=== PATIENT | female | born 1940 | race African-American/Black ===

== ENCOUNTER 2019-03-29 00:54 | Inpatient (IN) | payer OTHER ==
[~2019-03-29] VITALS: Ht 154.9 cm; Wt 59.0 kg
[2019-03-29 00:55] VITALS: BP 81/53
[2019-03-29 01:27] LABS: URINE BILIRUBIN NEGATIVE (Negative); URINE BLOOD 3+ (Negative); URINE CLARITY CLOUDY; URINE COLOR YELLOW; URINE GLUCOSE-RANDOM* 3+ (Negative); URINE KETONES 1+ (Negative); URINE NITRITE-REFLEX NEGATIVE (Negative); URINE PROTEIN (DIPSTICK) NEGATIVE (Negative); URINE SPECIFIC GRAVITY 1.025 (1.005-1.035); URINE UROBILINOGEN 0.2 E.U./dl (0.2-1.0)
[2019-03-29 01:29] LABS: ABSOLUTE NEUTROPHILS 6.9 thou/uL (1.4-8.2); BASOPHILS 0.2 % (0.0-2.0); HEMATOCRIT 44.5 % (37.0-47.0); HEMOGLOBIN 14.6 gm/dL (12.0-15.0); LYMPHOCYTES 8.2 % (24.0-44.0); MCH 27.7 pg (26.0-34.0); MCHC 32.8 g/dL (28.0-37.0); MCV 84.4 fL (80.0-100.0); MONOCYTES 7.4 % (1.0-8.0); PLATELET COUNT 184 thou/uL (150-400); POLYS 84.2 % (36.0-66.0); RBC 5.27 mil/uL (4.20-5.00); RDW 15.6 % (10.5-14.5); WBC 8.2 thou/uL (4.0-11.0)
[2019-03-29 01:31] LABS: URINE LEUKOCYTES-REFLEX 2+ (Negative)
[2019-03-29 01:37] LABS: CALCIUM 9.5 mg/dL (8.5-10.1); CREATININE 0.8 mg/dL (0.6-1.0); POTASSIUM 4.7 mmol/L (3.5-5.1)
[2019-03-29 01:43] LABS: ALBUMIN 3.4 g/dL (3.4-5.0); DIRECT BILIRUBIN 0.1 mg/dL (<0.1-0.3); TOTAL BILIRUBIN 0.4 mg/dL (<0.1-1.0); TOTAL PROTEIN 7.5 g/dL (6.4-8.2)
[2019-03-29] MEDS ORDERED: TYLENOL WITH CO1 TA1 PO ×2 (01:43→01:44)
[2019-03-29] MEDS ORDERED: TYLENOL PO (01:43)
[2019-03-29] MEDS ORDERED: LIPITOR 20 MG T20 M1 PO (01:44)
[2019-03-29] MEDS ORDERED: BACLOFEN 10MG T10 MG PO (01:45)
[2019-03-29] MEDS ORDERED: DAILY VITAMIN1 EAC4 PO (01:45)
[2019-03-29] MEDS ORDERED: MILK OF MA400 MG/5 M PO (01:46)
[2019-03-29] MEDS ORDERED: SENNA PLUS TAB1 EACH PO (01:46)
[2019-03-29] MEDS ORDERED: ZOFRAN4 MG PO (01:47)
[2019-03-29] MEDS ORDERED: JARDIANCE10 MG PO (01:47)
[2019-03-29] MEDS ORDERED: EQUETRO100 MG PO (01:49)
[2019-03-29] MEDS ORDERED: EQUETRO300 MG PO (01:49)
[2019-03-29] MEDS ORDERED: OXYBUTYNIN 5 MG5 M2 PO (01:50)
[2019-03-29 01:52] LABS: BACTERIA-REFLEX >30 Many /HPF (None Seen); CASTS None Seen /LPF (None Seen); CRYSTALS None Seen /LPF (None Seen); MUCUS 0-3 Light strn/LPF (None Seen); SQUAMOUS 0-3 Few /LPF (0-3); URINE RBC >20 Many /HPF (0-2); URINE WBC-REFLEX >25 Many /HPF (0-5); WBC CLUMPS Moderate (None Seen); YEAST-REFLEX Present (None Seen)
--- NOTE | 2019-03-29 02:14 | NUR ---
NOTIFIED STAFF AT [facility] ABOUT PT WILL BE ADMITTED.
--- NOTE | 2019-03-29 02:44 | NUR ---
Report was given to KEITH Zimmer.
[2019-03-29 02:53] VITALS: BP 134/80
[2019-03-29 03:11] VITALS: BP 110/68
--- NOTE | 2019-03-29 05:51 | NUR ---
PT CAME TO 4S @0300. ADMISSION ASSSESSMENT COMPLETED. PT IS A&O TO PERSON AND PLACE BUT FORGETFUL. TOTAL CARE, Q2 TURN. R. HAND WEAK, R. LEG UNABLE TO MOVE. INCONTINENT OF B/B. SKIN IS INTACT, PINK AREAS TO BUTTOCK & ESCORIATED BL GROIN. VSS. RA. APPEARS TO BE NO DISTRESS. BLADDER DISCENDED, SCANNED REFLECTED >999ML, ORDERS RC TO PLACE MATIAS. 16 FR MATIAS TO DD PLACED W/ NO DIFFICULTY. IMMEDIATE OUTPUT OF >1400 NOTED. FALL PRECAUTIONS IN PLACE. WILL CONTINUE POC.
[2019-03-29 07:56] VITALS: BP 112/50
--- NOTE | 2019-03-29 15:45 | NUR ---
Assumed care of pt at 0700. Home meds restarted. Fregoso catheter in place. Q2h turn. Redness noten on buttocks area. Barrier cream applied. IVF infusing. GI consulted. GI doctor ordered obd ultrasound. Radiology called and states ultrasound can only be done on Tuesday (mar 31). Accu check achs. Call light within reach. Will continue to monitor.
[2019-03-29 17:20] VITALS: BP 116/60
[2019-03-29 19:31] VITALS: BP 91/53
--- NOTE | 2019-03-30 02:45 | NUR ---
ASSUMED PT CARE ON 03/29/19 APPROX 191. PT IS ALERT TO SELF. PT WAS EDUCATED ON HOW TO USE THE CALL LIGHT. PT TOOK THE SCHEDULED MEDICATION. PT IS INCONTINENT. PT WAS REPOSITIONED Q2 HRS. PT HAS A SMALL BM THAT WAS A LIQUID AND LIGHT BROWN. PT HAS WEAKNESS. PT FOLLOWS DIRECTIONS. WILL CONTINUE TO MONITOR.
[2019-03-30 04:30] VITALS: BP 101/52
[2019-03-30 04:40] LABS: HEMATOCRIT 35.7 % (37.0-47.0); MCH 28.2 pg (26.0-34.0); MCHC 33.4 g/dL (28.0-37.0); MCV 84.3 fL (80.0-100.0); RBC 4.24 mil/uL (4.20-5.00); RDW 15.4 % (10.5-14.5); WBC 7.4 thou/uL (4.0-11.0)
[2019-03-30 04:48] LABS: HEMOGLOBIN 11.9 gm/dL (12.0-15.0)
[2019-03-30 04:59] LABS: ALBUMIN 2.7 g/dL (3.4-5.0); ANION GAP 11 mmol/L (7-16); BUN 16 mg/dL (7-18); CALCIUM 8.7 mg/dL (8.5-10.1); CHLORIDE 104 mmol/L (98-107); CO2 24 mmol/L (21-32); CREATININE 0.7 mg/dL (0.6-1.0); DIRECT BILIRUBIN < 0.1 mg/dL (<0.1-0.3); GLUCOSE 146 mg/dL (74-106); POTASSIUM 4.4 mmol/L (3.5-5.1); SGOT 36 U/L (15-37); SGPT 57 U/L (30-65); SODIUM 139 mmol/L (136-145); TOTAL BILIRUBIN 0.3 mg/dL (<0.1-1.0); TOTAL PROTEIN 6.2 g/dL (6.4-8.2)
[2019-03-30 09:46] VITALS: BP 101/57
--- NOTE | 2019-03-30 11:08 | NUR ---
Assumed care of pt at 0700. Denies pain. Q2h turn. Fregoso catheter in place. IVF infusing. Pt worked with physical therapy today. Fall precautions in place. Will continue to monitor.
[2019-03-30 16:29] VITALS: BP 105/58
[2019-03-30 23:10] LABS: HAV IgM AB (ANTI-HAV IgM) Negative (Negative); HEP B SURFACE Ab(ANTI-HBS Non Reactive (()); HEPATITIS B SURFACE AG Negative (Negative); HEPATITIS C VIRUS AB 0.2 (0.0-0.9)
--- NOTE | 2019-03-31 03:32 | NUR ---
ASSUMED CARE AT 1900. PT COMPLAINING OF BOTTOM HURTING. Q2 TURNS AND BARRIER CREAM PROVIDED, NO RELIEF. PT IS SEVERELY IMPACTED, HALLIE DISIMPACTED PT, PAIN MEDS AND STOOL SOFTENER GIVEN. CATHETER PATENT. ANTIBIOTIC GIVEN. PT NOW SLEEPING.
[2019-03-31 06:28] VITALS: BP 128/73
[2019-03-31 08:30] VITALS: BP 102/61
--- NOTE | 2019-03-31 10:11 | NUR ---
Resumed care at 0700. PT was sitting in bed complaining of 10/10 pain on her buttocks. Nurse repositioned PT to her right side using a wedge pillow and 2 ast. A pillow was placed between PT's knees. Nurse applied barrier cream to PT's buttocks after pericare was performed. PT expressed relief with her pain and rated it a 9/10 after interventions were performed. Nurse set up PT so she could wash her face and brush her teeth. Fregoso appeared intact and draining well. Morning medications were given. PT appeared to tolerate those well. Call light is within reach. Nurse will continue to monitor.
[2019-03-31 16:00] VITALS: BP 110/72
[2019-03-31 20:00] VITALS: BP 129/69
--- NOTE | 2019-04-01 04:40 | NUR ---
PATIENT ALERT AND ORIENTED X4. C/O PAIN, MED GIVEN. ACCUCHECK 280, NO COVERAGE ORDERED. MATIAS PATENT YELLOW URINE WITH SEDIMENT. HAS PRONOUNCED R SIDED WEAKNESS. IV PATENT IN RAC. SLEPT MOST OF NIGHT.
--- NOTE | 2019-04-01 15:46 | NUR ---
ASSUMED PT CARE AT 0700. PT IS AOX4, TURNED Q 2HRS, VSS, IV PATENT IN RIGHT AC. PT HAD LARGE BM DURING THIS SHIFT. MATIAS CATH HAS YELLOW URINE WITH SEDIMENT. PT IS WEAK ON RIGHT SIDE, WITCH LUCINDA TUCKS PADS APPLY TO BUTTOCKS FOR PAIN RELIEF. PT REPORTS BUTTOCKS IS SORE 6/10, BUT REFUSED PAIN ANALGESIC AT THIS TIME. TOLERATING DIET WELL, CALL LIGHT, AND PERSONAL ITEMS ARE IN REACH. WILL CONTINUE TO MONITOR.
[2019-04-01 16:22] VITALS: BP 135/69
[2019-04-01 19:20] VITALS: BP 129/67
[2019-04-02 04:39] VITALS: BP 119/56
[2019-04-02 06:31] LABS: HEMATOCRIT 36.5 % (37.0-47.0); MCH 27.6 pg (26.0-34.0); MCHC 32.8 g/dL (28.0-37.0); MCV 84.3 fL (80.0-100.0); PLATELET COUNT 186 thou/uL (150-400); RBC 4.34 mil/uL (4.20-5.00); RDW 15.1 % (10.5-14.5)
[2019-04-02 06:52] LABS: ALBUMIN 2.6 g/dL (3.4-5.0); CALCIUM 8.5 mg/dL (8.5-10.1); CREATININE 0.5 mg/dL (0.6-1.0); POTASSIUM 3.7 mmol/L (3.5-5.1); TOTAL BILIRUBIN 0.2 mg/dL (<0.1-1.0); TOTAL PROTEIN 6.2 g/dL (6.4-8.2)
--- NOTE | 2019-04-02 08:06 | NUR ---
PT LYING IN BED. REMAINS INCONTINENT OF STOOL. TUCKS AND SUPPOSITORY PROVDIDING PAIN RELIEF. RESTING COMFORTABLY. NO NEEDS VOICED. CALL LIGHT WITHIN REACH. WILL CONTINUE TO PROVIDE FREQUENT OBSERVATION.
[2019-04-02 08:44] LABS: ABSOLUTE NEUTROPHILS 3.2 thou/uL (1.4-8.2); PLATELET ESTIMATE NORMAL
[2019-04-02 08:58] VITALS: BP 137/68
[2019-04-02] MEDS ORDERED: CEFTRIAXON1 GM/50 ML IV (12:04)
[2019-04-02] MEDS ORDERED: EQUETRO100 MG PO (12:09)
--- NOTE | 2019-04-02 16:08 | NUR ---
PT DISCHARGING BACK TO [facility] FAXED DC ORDERS/SUMMARY TO FACILITY SPOKE WITH MARTIR IN ADM SHE RECEIVED DC ORDERS AND ARRANGED TRANSPORT BY [facility] FOR 1700. LEFT MSG WITH PT'S SON (LEXI) AND DTR IN LAW (ARRON) OF DC AND TIME OF TRANSPORT. UNIT NOTIFIED AND CHART COPY PER US. RN TO CALL REPORT TO [phone].
--- NOTE | 2019-04-02 17:31 | NUR ---
TRANSPORTATION HERE TO TRANSPORT PATIENT. NO PAIN OR RESP DISTRESS AT DC. ALL BELONGINGS PACKED AND SENT WITH PATIENT. IV ACSESS DCD.
[2019-04-03 09:08] LABS: MITOCHONDRIAL ANTIBODY <20.0 Units (0.0-20.0)
--- NOTE | 2019-04-04 09:40 | HC ---
[facility] [place] [address] CONSULTATION Name: LINDA NIELSON Lela Room #: 444-P [facility] ..#: [id number] Admission: 03/29/19 Attend Phys: Romero Smiley MD Discharge: 04/02/19 Date of : 38 Report #: [id number] THIS REPORT FOR: //name// CC: Romero Smiley MD DATE OF SERVICE: 03/29/2019 HISTORY OF PRESENT ILLNESS: The patient is a 78-year-old female apparently with new onset confusion at her halfway recently. She was diagnosed with urinary tract infection on admission and started on antibiotics. She has improved today. Her mental status has improved. Reason for GI consultation is elevated liver function tests. The patient denies any history of liver disease. No history of alcohol use. She is on the statin medications as well as other medications. This has now been held. She denies any abdominal pain. She reports her bowel movements have been normal other than constipation. Denies any blood in her stools. She believes she had a colonoscopy within the last 5 years that was negative. The patient was hypotensive on admission. This is now improved. She currently denies any fevers or chills. Again, no abdominal pain. No chest pain or shortness of breath. She is eating a regular diet currently. PAST MEDICAL HISTORY: History of multiple sclerosis, previous hemorrhoidectomy, history of diabetes, hypertension, peripheral vascular disease, constipation, hyperlipidemia. MEDICATIONS ON ADMISSION: Tylenol with Codeine p.r.n., Lipitor, multivitamin, baclofen, senna p.r.n., milk of magnesia p.r.n., Zofran p.r.n., carbamazepine, oxybutynin. ALLERGIES: No known drug allergies. REVIEW OF SYSTEMS: As per HPI. FAMILY HISTORY: Negative for colon cancer. SOCIAL HISTORY: She denies any tobacco or alcohol use. PHYSICAL EXAMINATION: VITAL SIGNS: Temperature is 98.4, pulse 61, blood pressure 112/50, respiratory rate is 18. GENERAL: She is alert and oriented x 3, in no acute distress. HEENT: Sclerae nonicteric. Oropharynx clear. NECK: Supple, without lymphadenopathy. CARDIOVASCULAR: Regular rate and rhythm. CHEST: Clear to auscultation bilaterally. ABDOMEN: Soft, nontender, nondistended, normoactive bowel sounds. [facility] [address] [place] [address] CONSULTATION Name: LINDA NIELSON Lela Room #: 444-P [facility].#: [id number] Admission: 03/29/19 Attend Phys: Romero Smiley MD Discharge: 04/02/19 Date of : 38 Report #: [id number] EXTREMITIES: No cyanosis, clubbing or edema. LABORATORY DATA: Sodium 144, potassium 4.7, chloride 104, bicarbonate 26, BUN 18, creatinine 0.8, glucose 158. AST 55, total bilirubin 0.4, alkaline phosphatase 261, ALT is 101, albumin 3.4. Lactic acid level 2.0. WBC is 8.2, hemoglobin 14.6, platelet count is 184. UA shows wbc's greater than 25, bacteria greater than 30. No other liver function tests to compare. ASSESSMENT AND PLAN: Elevated liver function tests, etiology is unclear. The patient had been on statin. Agree with holding this at this time. We will continue to monitor her liver function tests. We will proceed with an ultrasound of the abdomen tomorrow. The patient denies any abdominal pain. There is no history of alcohol. She was hypotensive on admission, which could be playing a role. We will proceed with further liver lab workup as well at this time. Thank you for allowing me to participate in her care. <ELECTRONICALLY SIGNED> By: Amos Padgett MD 04/04/19 0940 1252 1319 Amos Padgett MD /nt
== END 2019-04-02 17:45 | DRG 871 ==
LOC: ER 00:54 → EROBS 02:14 → 4S 02:14
PROVIDERS: Emergency Medicine; Internal Medicine; Specialist; ADMIT Internal Medicine
DX: A41.9 Sepsis, unspecified organism (principal); G93.41 Metabolic encephalopathy; E87.2 Acidosis; N12 Tubulo-interstitial nephritis, not specified as acute or chronic; G35 Multiple sclerosis; I95.9 Hypotension, unspecified; K59.00 Constipation, unspecified; I10 Essential (primary) hypertension; E11.51 Type 2 diabetes mellitus with diabetic peripheral angiopathy without gangrene; E78.5 Hyperlipidemia, unspecified; G50.0 Trigeminal neuralgia; J31.0 Chronic rhinitis; E86.0 Dehydration; Z79.2 Long term (current) use of antibiotics; Z79.899 Other long term (current) drug therapy; Z79.891 Long term (current) use of opiate analgesic; Z87.891 Personal history of nicotine dependence
CPT/HCPCS: 10195

== ENCOUNTER 2019-07-12 12:22 | Inpatient (IN) | payer OTHER ==
[~2019-07-12] VITALS: Ht 152.4 cm; Wt 67.1 kg
--- NOTE | ~2019-07-12 | EKG ---
[facility] [address] [place] [address] ELECTROCARDIOGRAM REPORT Name: LINDA NIELSON Room #: [facility]..#: [id number] Admission: Attend Phys: Discharge: Date of : 38 Report #: [id number] THIS REPORT FOR: cc: Romero Smiley MD, Ramilo MD Epiphany, Epiphany MD ~ THIS REPORT FOR: //name// [facility] ED Test Date: 2019-07-12 Test Time: 13:05:47 Pat Name: LINDA NIELSON Department: Room: Gender: F [employer] Radar Operator: JOHNATHAN : 1940 Requested By: Barry Lomax Order Number: [id number] MD: Measurements Intervals [place] Rate: 48 P: 20 WA: 253 QRS: -10 QRSD: 136 T: 61 QT: 468 QTc: 419 Interpretive Statements Sinus bradycardia Prolonged [place] interval Left bundle branch block No previous ECG available for comparison [email or web address] By: 1305 1305 Joe Diaz MD /EPI
[~2019-07-12 12:22] MED LIST: BACLOFEN 10MG T10 MG PO; CEFTRIAXON1 GM/50 ML IV; DAILY VITAMIN1 EAC4 PO; EQUETRO100 MG PO; EQUETRO300 MG PO; JARDIANCE10 MG PO; LIPITOR 20 MG T20 M1 PO; MILK OF MA400 MG/5 M PO; OXYBUTYNIN 5 MG5 M2 PO; SENNA PLUS TAB1 EACH PO; TYLENOL PO; TYLENOL WITH CO1 TA1 PO; ZOFRAN4 MG PO
[2019-07-12 12:24] VITALS: BP 95/52
[2019-07-12] MEDS ORDERED: TYLENOL325 MG PO (12:35)
[2019-07-12] MEDS ORDERED: EQUETRO100 MG PO (12:37)
[2019-07-12 13:51] LABS: ABSOLUTE NEUTROPHILS 3.7 thou/uL (1.4-8.2); BASOPHILS 0.4 % (0.0-2.0); EOSINOPHILS 1.2 % (0.0-3.0); HEMATOCRIT 40.8 % (37.0-47.0); HEMOGLOBIN 13.2 gm/dL (12.0-15.0); LYMPHOCYTES 30.8 % (24.0-44.0); MCH 27.4 pg (26.0-34.0); MCHC 32.3 g/dL (28.0-37.0); MCV 84.7 fL (80.0-100.0); PLATELET COUNT 154 thou/uL (150-400); POLYS 62.6 % (36.0-66.0); RBC 4.82 mil/uL (4.20-5.00); RDW 16.1 % (10.5-14.5)
[2019-07-12 14:34] LABS: ANION GAP 5 mmol/L (7-16); BUN 16 mg/dL (7-18); CALCIUM 7.9 mg/dL (8.5-10.1); CHLORIDE 112 mmol/L (98-107); CO2 30 mmol/L (21-32); CREATININE 0.6 mg/dL (0.6-1.0); GLUCOSE 106 mg/dL (74-106); POTASSIUM 3.8 mmol/L (3.5-5.1); SODIUM 147 mmol/L (136-145)
[2019-07-12 14:43] LABS: ALBUMIN 2.4 g/dL (3.4-5.0); MAGNESIUM 1.7 mg/dL (1.8-2.4); SGOT 35 U/L (15-37); SGPT 45 U/L (30-65); TOTAL BILIRUBIN 0.2 mg/dL (<0.1-1.0); TOTAL PROTEIN 5.1 g/dL (6.4-8.2); TROPONIN-I <0.06 ng/mL (<0.06)
[2019-07-12 15:00] LABS: URINE BILIRUBIN NEGATIVE (Negative); URINE BLOOD 1+ (Negative); URINE CLARITY CLOUDY; URINE COLOR YELLOW; URINE GLUCOSE-RANDOM* 3+ (Negative); URINE KETONES NEGATIVE (Negative); URINE LEUKOCYTES-REFLEX 2+ (Negative); URINE NITRITE-REFLEX POSITIVE (Negative); URINE PROTEIN (DIPSTICK) NEGATIVE (Negative); URINE SPECIFIC GRAVITY 1.015 (1.005-1.035); URINE UROBILINOGEN 0.2 E.U./dl (0.2-1.0)
[2019-07-12 15:08] LABS: CASTS None Seen /LPF (None Seen); CRYSTALS None Seen /LPF (None Seen); SQUAMOUS 0-3 Few /LPF (0-3); YEAST-REFLEX Present (None Seen)
[2019-07-12 15:09] LABS: BACTERIA-REFLEX >30 Many /HPF (None Seen); URINE RBC 0-2 Rare /HPF (0-2)
--- NOTE | 2019-07-12 16:45 | EKG ---
[facility] [place] [address] ELECTROCARDIOGRAM REPORT Name: LINDA NIELSON Room #: REG [facility]#: [id number] Admission: 07/12/19 Attend Phys: Discharge: Date of : 38 Report #: [id number] THIS REPORT FOR: cc: Romero Smiley MD, Ramilo MD Couchonnal,Eladio New MD ~ THIS REPORT FOR: //name// [facility] ED Test Date: 2019-07-12 Test Time: 13:05:47 Pat Name: LINDA NIELSON Department: Room: Gender: Rn Endoscopy: [facility] : 1940 Requested By: Barry Lomax Order Number: [id number] MD: Eladio Jackson Measurements Intervals [place] Rate: 48 P: 20 CA: 253 QRS: -10 QRSD: 136 T: 61 QT: 468 QTc: 419 Interpretive Statements Sinus bradycardia Prolonged CA interval Left bundle branch block No previous ECG available for comparison Electronically Signed On 07-12-2019 16:44:12 CDT by Eladio Jackson [email or web address] <ELECTRONICALLY SIGNED> By: Eladio Jackson MD 07/12/19 1644 04 04 Eladio Jackson MD /RIZWANA
[2019-07-12 16:56] VITALS: BP 110/53
--- NOTE | 2019-07-12 17:09 | NUR ---
CALLED AND SPOKE TO DR. REEVES REGARDING DROP IN BP - RECEIVED ORDER FOR 250 OF NS BOLUS. WILL PUT IN ORDER AND ADMIN AT THIS TIME
[2019-07-12 17:26] VITALS: BP 102/56; BP 82/41
[2019-07-12 18:30] VITALS: BP 100/69
--- NOTE | 2019-07-12 18:54 | NUR ---
ASSUMED CARE OF PATIENT AT 1800. PATIENT IS A&O X 4. NIECE AT THE BEDSIDE. PATIENT DENIES ANY CHEST PAIN OR DIZZINESS. PATIENT IS SR ON TELE. PATIENT HAD FACILITY BRIEF REMOVED AND EXTERNAL FEMALE CATH PLACED, PATIENT IS INCONTINENT TO URINE. PATIENT IS RESTING COMFORTABLY. DINNER ORDERED AND PATIENT EATING DURING ADMISSION ASSESSMENT. PATIENT TO CONTINUE WITH POC.
[2019-07-12 19:19] VITALS: BP 101/65
--- NOTE | 2019-07-13 03:01 | NUR ---
ASSUMED CARE OF PT AT 2300HRS. PT IS AOX4. FALL PRECAUTION IN PLACE. AGREE WITH CORNELIUS NURSE'S ASSESSMENT. FEMALE EXTERNAL CATH IN PLACE. PT IS RESTING COMFORTABLY. VSS AND NO S/S OF ACUTE DISTRESS. WILL CONTINUE TO MONITOR.
[2019-07-13 03:50] VITALS: BP 114/68
[2019-07-13 07:20] VITALS: BP 121/73
[2019-07-13 11:00] VITALS: BP 115/58
[2019-07-13 15:00] VITALS: BP 124/76
--- NOTE | 2019-07-13 16:20 | NUR ---
Case opened to follow for dc planning. Pt is a ltc resident from [facility]. They are holding her bed and can accept her when medically cleared for readmission. She is normally up to a w/c with assist of one. The pt is being treated for UTI/Sepsis. The pt's son and dtr in law is her primary contacts. Dc conservation planner to fax update to the skilled nursing. Should she be ready to return over the weekend, staff will need to call their oncall liason to arrange [phone] and dc orders faxed to [phone].
--- NOTE | 2019-07-13 16:25 | NUR ---
PT ALERT AND ORIENTED TIMES FOUR. VSS, IVF INFUSING PER ORDER. PT DENIES PAIN AT THIS TIME. PT TOLERATES MEDS AND MEALS. PT SLOWLY PROGRESSING TOWRADS POC GOALS. PT FAMILY AT BEDSIDE THIS AFTERNOON.
--- NOTE | 2019-07-13 17:09 | NUR ---
FAXED CLINICAL UPDATE TO [facility] LEFT MSG WITH MARTIR IN ADM. DP TO FOLLOW.
[2019-07-13 20:45] VITALS: BP 141/92
--- NOTE | 2019-07-14 03:04 | NUR ---
pt resting quietly in room, prn tylenol for c/o of arm pain, turning and repositioning as needed, vss, will con't to monitor per ppoc.
[2019-07-14 04:44] LABS: HEMATOCRIT 38.6 % (37.0-47.0); HEMOGLOBIN 12.5 gm/dL (12.0-15.0); MCH 27.7 pg (26.0-34.0); MCHC 32.4 g/dL (28.0-37.0); MCV 85.4 fL (80.0-100.0); RBC 4.52 mil/uL (4.20-5.00); WBC 4.9 thou/uL (4.0-11.0)
[2019-07-14 04:45] VITALS: BP 126/76
[2019-07-14 04:51] LABS: CREATININE 0.6 mg/dL (0.6-1.0); POTASSIUM 4.8 mmol/L (3.5-5.1)
[2019-07-14 07:30] VITALS: BP 120/76
[2019-07-14 15:15] VITALS: BP 112/72
--- NOTE | 2019-07-14 16:18 | NUR ---
ASSESSMENT CHARTED. PT ALERT AND ORIENTED. PLEASANT WITH CARES. VSS. SEEN BY DR. REEVES. NO NEW ORDERS. WILL CONTINUE TO MONITOR.
[2019-07-14 21:29] VITALS: BP 131/73
[2019-07-15 04:45] VITALS: BP 125/62; BP 133/68
--- NOTE | 2019-07-15 06:22 | NUR ---
ASSUME CARE 1900. PT A/O X 4. VITALS STABLE. TEMP STARTED OFF LOW AT 94.6 BUT WENT UP TO 97.4 BY THE ENSD OF THE SHIFT. PT SR/SB ON MONITOR. NO DISTRESS NOTED. ADEQUATE REST NOTED. ASSESSMENT CHARTED. PROGRESSING MODERATELY WITH POC. PLAN IS TO CONTINUE WITH ABX. WILL CONTINUE TO FOLLOW WITH POC
[2019-07-15 08:00] VITALS: BP 126/75
[2019-07-15 12:34] VITALS: BP 105/64
--- NOTE | 2019-07-15 15:40 | NUR ---
PT ALERT AND ORIENTED. VSS. MEDS GIVEN ORDERED. NO CONCERNS AT THIS TIME. PROGRESSING WELL TOWARDS DISCHARGE GOAL. WILL CONTINUE TO MONITOR.
[2019-07-15 16:00] VITALS: BP 99/64
[2019-07-15 19:43] VITALS: BP 135/77
[2019-07-16 03:48] VITALS: BP 132/72
[2019-07-16 04:41] LABS: HEMOGLOBIN 12.3 gm/dL (12.0-15.0); MCH 27.4 pg (26.0-34.0); MCHC 32.4 g/dL (28.0-37.0); MCV 84.6 fL (80.0-100.0); RBC 4.49 mil/uL (4.20-5.00); RDW 16.1 % (10.5-14.5)
[2019-07-16 04:53] LABS: CALCIUM 8.8 mg/dL (8.5-10.1); CREATININE 0.6 mg/dL (0.6-1.0); POTASSIUM 4.1 mmol/L (3.5-5.1)
--- NOTE | 2019-07-16 05:58 | NUR ---
ASSUMED PT CARE AROUND 1900. PT RESTING IN BED. PT REPOSITIONED AND HAD NO C/O PAIN, SOA, N/V/D. PT VITALS STABLE AND ASSESSMENT CHARTED. PT SLEPT THRU NIGHT WITH MINIMAL INTERRUPTIONS. WILL CONTINUE TO MONITOR PT PER PLAN OF CARE.
[2019-07-16 07:00] VITALS: BP 110/61
--- NOTE | 2019-07-16 09:47 | NUR ---
Nutrition: Pt seen d/t low Velasquez score 13 (moderate risk). Admit from facility w/ UTI, sepsis, hypotension. Hx MS, generalized weakness, DM, PVD. Malnutrition indicated in EMR - alb 2.4. Current intake is 70-100% past 3 days. Reports fair appetite. No wasting observed. Weighed 130# on 03/29/19, most recent wt is 147.9#. Unsure of scale accuracy. Wt of 137# on 07/11 is likely more accurate. Reports UBW of 130#. [facility] facility was obtaining wt 1x per week due to a ~7# wt loss which occurred approx. 2 months ago down to 123#, but pt has since regained and wt has been stable past 1 month. Will defer malnutrition diagnosis at this time. BG 85-275. Meds include SSI, multivitamin w/ minerals, IV Abx. Pt aware of ordering preferences from alternate menu. Consider low nutritional risk at this time.
[2019-07-16 11:35] VITALS: BP 90/60
--- NOTE | 2019-07-16 11:38 | NUR ---
ANÍBAL reviewed chart and spoke with nursing. ANÍBAL contacted attending physician to see if pt is ready for discharge back to [facility] today. Discharge may be later today. Awaiting physician to evaluate pt today. emergency planner to fax updates to [facility] and notify of possible discharge. Chart copy requested. ANÍBAL attempted to leave message for pt's son, Osmar. Voice mailbox is full. ANÍBAL spoke with pt's dtr-in-law, Krista, to provide update and notify of anticipated discharge. Krista is aware and agreeable with discharge plan. Pt's son is unable to answer his phone during the day. Krista ([phone]) will need to be notified when disharge plan is in place. ANÍBAL is following to assist as needed with discharge planning.
--- NOTE | 2019-07-16 13:17 | NUR ---
FAXED CLINICAL UPDATE TO [facility] RECEIVED CONFIRMATION AND SPOKE WITH CHELY IN ADM THAT PT POSS DC TODAY BACK TO THEIR FACILITY WTG ON DR REEVES TO DECIDE. DP TO FOLLOW.
[2019-07-16] MEDS ORDERED: CEFUROXIME500 MG PO (14:26)
[2019-07-16 15:15] VITALS: BP 99/57
--- NOTE | 2019-07-16 16:31 | NUR ---
PT DISCHARGING TODAY TO [facility] SPOKE WITH CHELY IN ADM SHE IS COVERING FOR MARTIR SHE RECEIVED DC ORDERS/SUMMARY AND CARONAVIRUS SCREENING SHEET AND ARRANGED TRANSPORT BY [facility] FOR [id number] TODAY. NOTIFIED PT'S FAMILY (PAULETTE) OF DC AND TIME OF TRANSPORT. UNIT NOTIFIED AND CHART COPY PER US RN TO CALL REPORT TO [phone].
--- NOTE | 2019-07-16 16:56 | NUR ---
ASSESSMENT DOCUMENTED, DENIES ANY DISCOMFORT. VSS AND AFEBRILE, SB, 1AVB AND DEVIN AT TIMES. PATIENT DISCHARGED BACK TO FACILITY, AND COPY OF THE CHART SENT WITH PATIENT. CALLED X2 TO GIVE REPORT AND NO ONE IS ANSWERING THE PHONE.
== END 2019-07-16 17:00 | DRG 871 ==
LOC: ER 12:22 → EROBS 17:20 → 2N 17:20
PROVIDERS: Emergency Medicine; Internal Medicine; ADMIT Internal Medicine
DX: A41.9 Sepsis, unspecified organism (principal); E43 Unspecified severe protein-calorie malnutrition; N39.0 Urinary tract infection, site not specified; G35 Multiple sclerosis; I10 Essential (primary) hypertension; E11.51 Type 2 diabetes mellitus with diabetic peripheral angiopathy without gangrene; G50.0 Trigeminal neuralgia; E78.5 Hyperlipidemia, unspecified; J31.0 Chronic rhinitis; N32.81 Overactive bladder; M79.602 Pain in left arm; B96.20 Unspecified Escherichia coli [E. coli] as the cause of diseases classified elsewhere; Z68.28 Body mass index [BMI] 28.0-28.9, adult; Z87.891 Personal history of nicotine dependence; Z87.440 Personal history of urinary (tract) infections; Z99.3 Dependence on wheelchair; Z79.891 Long term (current) use of opiate analgesic; Z79.899 Other long term (current) drug therapy
CPT/HCPCS: 10081

== ENCOUNTER 2019-09-07 21:56 | Inpatient (IN) | payer OTHER ==
[~2019-09-07] VITALS: Ht 167.6 cm; Wt 58.3 kg
[~2019-09-07 21:56] MED LIST changes: +CEFUROXIME500 MG PO; +TYLENOL325 MG PO
[2019-09-07 22:01] VITALS: BP 127/68
[2019-09-07 22:26] LABS: URINE BILIRUBIN NEGATIVE (Negative); URINE BLOOD TRACE (Negative); URINE CLARITY CLEAR; URINE COLOR YELLOW; URINE GLUCOSE-RANDOM* 3+ (Negative); URINE KETONES NEGATIVE (Negative); URINE NITRITE-REFLEX NEGATIVE (Negative); URINE PROTEIN (DIPSTICK) NEGATIVE (Negative); URINE UROBILINOGEN 0.2 E.U./dl (0.2-1.0)
[2019-09-07 22:27] LABS: URINE LEUKOCYTES-REFLEX 2+ (Negative)
[2019-09-07 22:31] LABS: ABSOLUTE NEUTROPHILS 3.2 thou/uL (1.4-8.2); BASOPHILS 0.8 % (0.0-2.0); EOSINOPHILS 1.2 % (0.0-3.0); HEMATOCRIT 40.3 % (37.0-47.0); HEMOGLOBIN 13.3 gm/dL (12.0-15.0); LYMPHOCYTES 29.9 % (24.0-44.0); MCH 27.8 pg (26.0-34.0); MCV 84.2 fL (80.0-100.0); MONOCYTES 8.1 % (1.0-8.0); PLATELET COUNT 179 thou/uL (150-400); RBC 4.78 mil/uL (4.20-5.00); RDW 16.3 % (10.5-14.5); WBC 5.3 thou/uL (4.0-11.0)
[2019-09-07 22:33] LABS: CASTS None Seen /LPF (None Seen); MUCUS None Seen strn/LPF (None Seen); SQUAMOUS None Seen /LPF (0-3); WBC CLUMPS Moderate (None Seen)
[2019-09-07 22:34] LABS: BACTERIA-REFLEX None Seen /HPF (None Seen); CRYSTALS None Seen /LPF (None Seen); URINE RBC 0-2 Rare /HPF (0-2); YEAST-REFLEX Present (None Seen)
[2019-09-07 22:44] LABS: ANION GAP 7 mmol/L (7-16); BUN 18 mg/dL (7-18); CALCIUM 8.4 mg/dL (8.5-10.1); CHLORIDE 109 mmol/L (98-107); CO2 31 mmol/L (21-32); CREATININE 0.8 mg/dL (0.6-1.0); GLUCOSE 125 mg/dL (74-106); POTASSIUM 4.3 mmol/L (3.5-5.1); SODIUM 147 mmol/L (136-145)
[2019-09-07 22:54] LABS: ALBUMIN 3.1 g/dL (3.4-5.0); LIPASE 143 U/L (73-393); SGOT 89 U/L (15-37); SGPT 86 U/L (30-65); TOTAL BILIRUBIN 0.3 mg/dL (<0.1-1.0); TROPONIN-I <0.06 ng/mL (<0.06)
[2019-09-08 01:08] VITALS: BP 118/65
[2019-09-08 01:30] VITALS: BP 113/78; BP 129/78
--- NOTE | 2019-09-08 04:04 | NUR ---
patient aox2 confused and forgetful. patient is calm and cooeprative with meds and care.new admission for uti and yeast infection. patient enouraged fluids.patient incontinent pericare and barrier cream applied as needed. patient skin is warm and intact. call light and personal belongings within reach. fall precaution in place.patient in bed asleep at this time breathing regular and unlaboured.
[2019-09-08 06:16] LABS: CALCIUM 8.1 mg/dL (8.5-10.1); CREATININE 0.6 mg/dL (0.6-1.0); POTASSIUM 3.9 mmol/L (3.5-5.1)
[2019-09-08 07:26] VITALS: BP 102/63
--- NOTE | 2019-09-08 10:00 | EKG ---
[facility] [place] [address] ELECTROCARDIOGRAM REPORT Name: LINDA NIELSON Lela Room #: 460-P ADM IN M.R.#: [id number] Admission: 09/08/19 Attend Phys: Micky Gudino MD Discharge: Date of : 38 Report #: [id number] THIS REPORT FOR: cc: Romero Smiley MD, Ramilo MD Lundgren,Dariusz [place] MD [facility] ~ THIS REPORT FOR: //name// [facility] ED Test Date: 2019-09-07 Test Time: 22:09:03 Pat Name: LINDA NIELSON Department: Room: [facility] Gender: F Newsc[employer] Producer: TWIN : 1940 Requested By: Ta Gao Order Number: [id number] MD: Dariusz Pinedo Measurements Intervals [place] Rate: 58 P: -40 IL: 242 QRS: -9 QRSD: 97 T: 67 QT: 446 QTc: 439 Interpretive Statements Sinus rhythm Prolonged [place] interval Poor R wave progression Compared to ECG 07/12/2019 13:05:47 No significant change was found Electronically Signed On 09-08-2019 9:58:39 CDT by Dariusz Pinedo [email or web address] <ELECTRONICALLY SIGNED> By: Dariusz Pinedo MD, [facility] 09/08/19 0958 08 Dariusz Pinedo MD, [facility] /EPI
[2019-09-08 16:29] VITALS: BP 103/56
--- NOTE | 2019-09-08 17:01 | NUR ---
ASSUMED CARE AROUND 0700, PT SLEEPY BUT EASILY AWAKEN, A&O TO PERSON AND PLACE, NO ACUTE DISTRESS NOTED. VSS, O2 ON RA. PT DENIED ANY PAIN OR DISCOMFORT. MEDS GIVEN PER ORDERS, BG ACHS WITH SS NEEDED. IV TO RFA INFUSING NS AT 100ML/H, ALSO ON ABX FOR UIT/YEAST. ENCOURAGED FLUID INTAKE. PT APPEARED TO HAVE GOOD APPETITE, ATE 100% OF LUNCH. RESTING IN BED, CALL LIGHT WITHIN REACH, WILL CONTINUE TO MONITOR PER POC.
[2019-09-08 19:57] VITALS: BP 102/55
[2019-09-09 03:39] VITALS: BP 94/60
--- NOTE | 2019-09-09 04:37 | NUR ---
PROGRESS PT A/O X 3 A LITTLE FORGETFUL AT TIMES. IVF'S NS@ 100ML/HR INFUSING IN RF. GETTING ROCHEPHIN DAILY. WAITING ON PT/OT EVAL AND TREAT VSS ACCUCHECKS AND SSI CONTINUE. TAKES PI;;SS WHOLE ONE AT A TIME WITH SIPS OF WATER. MONITOR FOR ASPIRATION. ASSIST ALL MEALS AND FLUID INTAKE TO PREVENT POOR INTAKE, ACUCHECKS AND SSI CONTINUE.
[2019-09-09 07:37] VITALS: BP 93/55
[2019-09-09 15:59] VITALS: BP 120/69
--- NOTE | 2019-09-09 18:32 | NUR ---
Assumed patient care at 0715. Blood Pressure has been low (she is asymptomatic). All other vital signs have been within normal limits. LSCTA (diminished), abdomen non-tender and distended with hypoactive bowel sounds, skin is clean, warm, dry and intact; she denies pain. Patient has had adequate food and fluid intake. IV fluids continue at 100mLs/hr. Patient has been resting with eyes closed throughout most of this shift. Minimal disorientation noted. She has been calm and cooperative. Lunch Blood Sugar required 6 Units of Sliding Scale Insulin, none needed at Breakfast or for Dinner. Patient was given Miralax with am medications due to constipation; no results as of this evening. She has been incontinent of bladder. Patient prefers to lay in semi-fowlers position with a blanket over her head. Will continue to monitor and report to on-coming RN.
[2019-09-09 19:54] VITALS: BP 128/68
--- NOTE | 2019-09-10 04:06 | NUR ---
Pt. rested quietly at intervals during the night when checked on during frequent rounds. Po tylenol given (see emar) for c/o neck pain with some relief noted. Bed alarm is on.
[2019-09-10 06:00] LABS: HEMATOCRIT 34.4 % (37.0-47.0); HEMOGLOBIN 11.1 gm/dL (12.0-15.0); MCH 27.7 pg (26.0-34.0); MCHC 32.4 g/dL (28.0-37.0); MCV 85.5 fL (80.0-100.0); RBC 4.02 mil/uL (4.20-5.00); RDW 16.4 % (10.5-14.5); WBC 3.8 thou/uL (4.0-11.0)
[2019-09-10 06:13] LABS: CALCIUM 7.6 mg/dL (8.5-10.1); CREATININE 0.6 mg/dL (0.6-1.0); POTASSIUM 3.7 mmol/L (3.5-5.1)
[2019-09-10 07:18] VITALS: BP 103/66
--- NOTE | 2019-09-10 12:18 | NUR ---
PT IS FROM [facility] FAXED CLINICAL UPDATE AND RECEIVED CONFIRMATION AND LEFT MSG WITH MARTIR IN ADM. DP TO FOLLOW.
[2019-09-10] MEDS ORDERED: KEFLEX500 M1 PO (14:40)
[2019-09-10 15:12] VITALS: BP 121/63
--- NOTE | 2019-09-10 15:56 | NUR ---
PT ADMITTED RELATED TO WEAKNESS. CM REVIEWED CHART AND SPOKE WITH CARE TEAM. CM ATTEMPTED PC TO PT'S ROOM WITH NO ANSWER. CHART INDICATES THAT SON CAN'T BE REACHED DURING DAY CM CALLED PT'S DTR IN LAW. SHE INDICATED THAT PT IS CHICKEN RANCH AND HAS DEMENTIA. SHE INDICATED PT LIVES LIVES IN LTC AT [facility] AND HAD USED A WC TO GET AROUND [place] [place]. SHE HAD BEEN 1 PERSON ASSIST WITH TRANSFERS. DTR IN LAW INDICATED SHE PLANNED ON PT RETURNING TO LTC AT [facility] ONCE MEDICALLY STABLE. CHART COPY ORDERED. ORDERS FAXED. WC TRANSPROT ARRANGED FOR 1729. DTR IN LAW NOTIFIED. NO OTHER CM INTERVENITON INDICATED. CASE CLOSED.
--- NOTE | 2019-09-10 19:42 | NUR ---
PT DISCHARGED TO [facility], IV REMOVED, NO SIGNS OF DISTRESS. REPORT CALLED TO FACILITY.
== END 2019-09-10 17:58 | DRG 757 ==
LOC: ER 21:56 → 4W 09-08 00:17 → EROBS 09-08 00:17 → 4W 09-08 02:10
PROVIDERS: Emergency Medicine; Nurse Practitioner Family; ADMIT Hospitalist
DX: B37.49 Other urogenital candidiasis (principal); G93.41 Metabolic encephalopathy; E44.1 Mild protein-calorie malnutrition; I10 Essential (primary) hypertension; G35 Multiple sclerosis; Z87.440 Personal history of urinary (tract) infections; E83.42 Hypomagnesemia; K59.00 Constipation, unspecified; D64.9 Anemia, unspecified; E78.5 Hyperlipidemia, unspecified; J31.0 Chronic rhinitis; E11.51 Type 2 diabetes mellitus with diabetic peripheral angiopathy without gangrene; Z79.899 Other long term (current) drug therapy; Z87.891 Personal history of nicotine dependence; N32.81 Overactive bladder
CPT/HCPCS: 10040

== ENCOUNTER 2019-10-13 20:02 | Emergency (ER) | payer OTHER ==
[~2019-10-13] VITALS: Ht 162.6 cm; Wt 68.0 kg
[~2019-10-13 20:02] MED LIST changes: +KEFLEX500 M1 PO
[2019-10-13 20:36] LABS: ABSOLUTE NEUTROPHILS 3.3 thou/uL (1.4-8.2); BASOPHILS 0.5 % (0.0-2.0); EOSINOPHILS 0.9 % (0.0-3.0); HEMATOCRIT 41.1 % (37.0-47.0); HEMOGLOBIN 13.9 gm/dL (12.0-15.0); LYMPHOCYTES 25.7 % (24.0-44.0); MCH 28.4 pg (26.0-34.0); MCHC 33.8 g/dL (28.0-37.0); MCV 84.1 fL (80.0-100.0); PLATELET COUNT 157 thou/uL (150-400); POLYS 67.9 % (36.0-66.0); RBC 4.89 mil/uL (4.20-5.00); RDW 16.7 % (10.5-14.5); WBC 4.8 thou/uL (4.0-11.0)
[2019-10-13 20:39] LABS: CALCIUM 9.1 mg/dL (8.5-10.1); CREATININE 0.6 mg/dL (0.6-1.0); POTASSIUM 4.4 mmol/L (3.5-5.1)
[2019-10-13 20:45] LABS: ALBUMIN 3.2 g/dL (3.4-5.0); TOTAL BILIRUBIN 0.3 mg/dL (0.2-1.0); TOTAL PROTEIN 6.9 g/dL (6.4-8.2)
[2019-10-13 20:57] LABS: URINE BILIRUBIN NEGATIVE (Negative); URINE BLOOD 1+ (Negative); URINE CLARITY SL CLOUDY; URINE COLOR YELLOW; URINE GLUCOSE-RANDOM* 3+ (Negative); URINE KETONES NEGATIVE (Negative); URINE LEUKOCYTES-REFLEX 1+ (Negative); URINE NITRITE-REFLEX NEGATIVE (Negative); URINE PROTEIN (DIPSTICK) NEGATIVE (Negative); URINE UROBILINOGEN 0.2 E.U./dl (0.2-1.0)
[2019-10-13 21:04] LABS: SQUAMOUS 0-3 Few /LPF (0-3); URINE RBC 0-2 Rare /HPF (0-2); YEAST-REFLEX Present (None Seen)
[2019-10-13 21:05] LABS: BACTERIA-REFLEX 1-9 Few /HPF (None Seen); CASTS None Seen /LPF (None Seen); CRYSTALS None Seen /LPF (None Seen); URINE WBC-REFLEX >25 Many /HPF (0-5)
[2019-10-13] MEDS ORDERED: KEFLEX500 M1 PO (21:09)
[2019-10-13 21:55] VITALS: BP 116/72
--- NOTE | 2019-10-14 08:47 | EKG ---
[facility] [place] [address] ELECTROCARDIOGRAM REPORT Name: LINDA NIELSON Room #: DEP [facility]#: [id number] Admission: 10/13/19 Attend Phys: Discharge: 10/13/19 Date of : 38 Report #: [id number] THIS REPORT FOR: cc: Romero Smiley MD, Ramilo MD Park, Jin S. MD ~ THIS REPORT FOR: //name// [facility] ED Test Date: 2019-10-13 Test Time: 20:12:45 Pat Name: LINDA NIELSON Department: Room: Gender: F Library Monitor: TWIN : 1940 Requested By: Ta Morales Order Number: [id number] MD: Emery Soriano Measurements Intervals [place] Rate: 55 P: 0 NC: 153 QRS: -14 QRSD: 108 T: 72 QT: 477 QTc: 457 Interpretive Statements Sinus rhythm Nonspecific ST segment abnormalities Compared to ECG 09/07/2019 22:09:03 First degree AV block no longer present Poor R-wave progression no longer present Electronically Signed On 10-14-2019 8:46:23 CDT by Emery Soriano [email or web address] <ELECTRONICALLY SIGNED> By: Emery Soriano MD 10/14/19 0846 11 11 Emery Soriano MD /EPI
== END 2019-10-13 22:26 | disposition home or self-care (01) ==
LOC: ER 20:02
PROVIDERS: Emergency Medicine
DX: N39.0 Urinary tract infection, site not specified (principal); R41.82 Altered mental status, unspecified; E11.9 Type 2 diabetes mellitus without complications; E78.5 Hyperlipidemia, unspecified; I10 Essential (primary) hypertension; Z87.891 Personal history of nicotine dependence; Z79.899 Other long term (current) drug therapy; Z90.89 Acquired absence of other organs